=== PATIENT | female | born 1955 | race Caucasian/White ===

== ENCOUNTER 2018-07-28 11:37 | Emergency (ER) | payer BC ==
[2018-07-28 12:13] LABS: #Basophils 0.1 thou/uL (0.0-0.2); #Eosinphils 0.1 thou/uL (0.0-0.7); #Lymphocytes 1.7 thou/uL (1.20-3.40); #Monocytes 0.4 thou/uL (0.11-0.59); %Basophils 1.5 % (0.0-1.0); %Eosinophils 0.8 % (0.0-10.0); %Lymphocytes 27.8 % (21.0-51.0); %Monocytes 5.8 % (0.0-10.0); %Neutrophils 64.1 % (42.0-75.0); Hemoglobin 12.6 g/dL (12.0-16.0); Mean Corpuscular Hemoglobin 29.4 pg (27.0-31.0); Mean Corpuscular Volume 88.9 fL (78.0-98.0); Mean Platelet Volume 8.4 fL (7.4-10.4); Platelet Count 255 thou/uL (130-400); RBC Distribution Width 12.7 % (11.5-14.5); Red Blood Cell (RBC) Count 4.28 mill/uL (4.20-5.40); White Blood Cell (WBC) Count 6.2 thou/uL (4.8-10.8)
--- NOTE | 2018-07-28 12:25 | RAD ---
SINGLE VIEW CHEST: Date: 07/28/18 COMPARISON: 08/03/13. HISTORY: Chest pain and shortness of breath. FINDINGS: Single view of the chest shows a normal sized cardiomediastinal silhouette with atherosclerotic calci fications in the aorta. There is no evidence of consolidation, mass, or pleural effusion. Degenerativ e changes are seen in the spine. IMPRESSION: No evidence of acute cardiopulmonary disease. POS: [facility]
[2018-07-28 12:41] LABS: ALT (SGPT) 16 U/L (8-55); AST (SGOT) 18 U/L (5-34); Albumin 4.1 g/dL (3.4-4.8); Alkaline Phosphatase 88 U/L (40-150); Anion Gap 11 mmol/L (10-20); BUN (Urea Nitrogen) 19 mg/dL (9.8-20.1); Bilirubin, Total 0.3 mg/dL (0.2-1.2); Calc. Creatinine Clearance 0 mL/min (70-130); Calcium 9.8 mg/dL (7.8-10.44); Carbon Dioxide 28 mmol/L (23-31); Chloride 104 mmol/L (98-107); Estimated GFR-MDRD 73; Globulin 3.3 g/dL (2.4-3.5); Glucose 106 mg/dL (80-115); Potassium 3.8 mmol/L (3.5-5.1); Protein, Total 7.4 g/dL (6.0-8.3); Sodium 139 mmol/L (136-145)
[2018-07-28 12:45] LABS: CKMB 2.4 ng/mL (0-6.6); Troponin I Less than 0.010 ng/mL (< 0.028)
--- NOTE | 2018-07-28 13:45 | ULT ---
RIGHT UPPER EXTREMITY ARTERIAL VASCULAR DUPLEX INCLUDING COLOR AND SPECTRAL DOPPLER IMAGING: Date: 07/28/18 HISTORY: 63-year-old female with history of right upper extremity tingling and numbness. Smoking history. FINDINGS: There is some fairly prominent plaque in the proximal right CCA with some turbulent flow, but no sign ificant abnormal increased velocity. Minimal increased velocity up to 155 cm/sec in the origin of the right subclavian artery. Otherwise including the right subclavian, right axillary, right brachial, a nd right radial and ulnar arteries, there is monophasic flow, but no evidence for significant abnorma l high velocities. Exam was somewhat difficult because of imaging of the vessels. IMPRESSION: Evidence for atherosclerotic vascular disease involving the proximal common carotid artery with plaqu e, but no significant abnormal increased velocity. Minimal increased velocity in the right subclavian artery. Monophasic flow throughout the remainder of the right upper extremity, but no evidence for s ignificant abnormal high velocities or occlusion. POS: [facility]
--- NOTE | 2018-07-30 19:04 | EKG ---
Test Reason : Blood Pressure : / mmHG Vent. Rate : 073 BPM Atrial Rate : 073 BPM P-R Int : 146 ms QRS Dur : 088 ms QT Int : 386 ms P-R-T Axes : 054 046 029 degrees QTc Int : 425 ms Normal sinus rhythm Possible Left atrial enlargement Left ventricular hypertrophy Nonspecific ST abnormality Abnormal ECG Artifact Confirmed by GAGANDEEP HUMPHREY, AFUA Randhawa ([id number]), offline editor HALINA BENITEZ ([id number]) on 07/30/2018 7:03:36 PM Referred By: Confirmed By:AFUA DONIS MD
== END 2018-07-28 14:15 | disposition home or self-care (01) ==
LOC: ERS 11:37
DX: M79.601 Pain in right arm (principal); Z71.6 Tobacco abuse counseling; F17.210 Nicotine dependence, cigarettes, uncomplicated; E78.5 Hyperlipidemia, unspecified; I10 Essential (primary) hypertension; Z79.899 Other long term (current) drug therapy
CPT/HCPCS: 71045; 82553; 83880; 84484; 93005; 93923; 99406

== ENCOUNTER 2019-10-06 08:40 | Outpatient (CLI) | payer BC ==
--- NOTE | 2019-10-06 11:19 | BD ---
DEXA BONE DENSITY STUDY: Date: 10/06/2019 HISTORY: Postmenopausal. FINDINGS: Lumbar Spine: BMD (g/cm2) L1 0.858 T-Score: -1.2 L2 0.856 T-Score: -1.6 L3 0.966 T-Score: -1.1 L4 1.000 T-Score: -0.6 Total 0.925 T-Score: -1.1 Left Femoral Neck: 0.578 T-Score: -2.4 Total Femur: 0.800 T-Score: -1.2 IMPRESSION: 1. Osteopenia of the left femoral neck. Values border on the osteoporosis range. 2. Osteopenia of the lumbar spine. 10 year fracture risk for major osteoporotic fracture is 21% and for hip fracture is 6.5%. These frac ture probabilities are calculated for an untreated patient. POS: [facility]
--- NOTE | 2019-10-06 12:38 | RAD ---
PA AND LATERAL CHEST: Date: 10/06/2019 HISTORY: Hypertension. FINDINGS: Heart size within normal limits. There are atherosclerotic changes of the aorta. Chronic lung changes are seen. IMPRESSION: Mild chronic lung change. POS: [facility]
--- NOTE | 2019-10-12 12:41 | MMO ---
Bilateral MAMMO Bilat Screen [facility]. CLINICAL HISTORY: Patient is 64 years old and is seen for screening. The patient has no family history of breast cancer. The patient has no personal history of cancer. The patient has a history of left Lumpectomy in 2002 - benign and left Lumpectomy in 2001 - benign. VIEWS: The views performed were: bilateral craniocaudal with tomosynthesis and bilateral mediolateral oblique with tomosynthesis. FILMS COMPARED: The present examination has been compared to a prior imaging study performed at [facility] on 07/17/2015. This study has been interpreted with the assistance of computer-aided detection. MAMMOGRAM FINDINGS: There are scattered fibroglandular densities. There are no suspicious masses, suspicious calcifications, or new areas of architectural distortion. IMPRESSION: THERE IS NO MAMMOGRAPHIC EVIDENCE OF MALIGNANCY. A ROUTINE FOLLOW-UP MAMMOGRAM IN 1 YEAR IS RECOMMENDED. THE RESULTS OF THIS EXAM WERE SENT TO THE PATIENT. ACR BI-RADS Category 1 - Negative MAMMOGRAPHY NOTE: 1. A negative mammogram report should not delay a biopsy if a dominant of clinically suspicious mass is present. 2. Approximately 10% to 15% of breast cancers are not detected by mammography. 3. Adenosis and dense breasts may obscure an underlying neoplasm. Reported by: ANTONIA MAZARIEGOS MD Electonically Signed: [id number]
== END 2019-10-06 08:41 | disposition home or self-care (01) ==
LOC: BICMAMMO 08:40
PROVIDERS: ATTEND Nurse Practitioner Family
DX: Z12.31 Encounter for screening mammogram for malignant neoplasm of breast (principal); Z13.820 Encounter for screening for osteoporosis; E55.9 Vitamin D deficiency, unspecified; I10 Essential (primary) hypertension; R09.89 Other specified symptoms and signs involving the circulatory and respiratory systems; M51.36 Other intervertebral disc degeneration, lumbar region; M54.5 Low back pain; M85.89 Other specified disorders of bone density and structure, multiple sites; Z72.0 Tobacco use; Z91.89 Other specified personal risk factors, not elsewhere classified
CPT/HCPCS: 71046; 77063; 77067; 77080

== ENCOUNTER 2019-10-12 11:49 | Outpatient (CLI) | payer BC, MEDICARE, MEDICAID ==
--- NOTE | 2019-10-12 13:37 | MRI ---
MRI thoracic spine noncontrast: DATE: 10/12/2019 HISTORY: 64-year-old female with mid back pain and urinary retention COMPARISON: None FINDINGS: Vertebral body heights are maintained. There is sclerosis, probably representing Modic type III arriaza es, at the anterior portions of the bodies of T6, T7, and T8. There is also mild rim of bone marrow edema around these sclerosis at T6-7, representing mild Modic type I changes. There is narrowing of t he anterior aspects of the disc spaces at T5-6, T6-7, T7-8, and T8-9. No other significant bone marrow signal abnormality. Mild lateral curvature. Vertebral body heights a re maintained. 1 x 0.4 cm T2 hyperintense and T1 hypointense lesion in a subcapsular location at far posterior aspec t of right lobe of liver, nonspecific but probably a tiny hepatic cyst. Thoracic spinal cord is normal in size, with no definitive evidence of intramedullary edema or myelom alacia. There is no syringohydromyelia. No extrinsic cord impingement at any level. At T11-T12 there is a shallow, broad-based disc-osteophyte complex indenting the ventral aspect of th e thecal sac, but not contacting the spinal cord, and not causing high-grade central spinal canal stenosis. There is endplate irregularity and moderate disc space narrowing at T 11-12. There is no high-grade central spinal canal stenosis at any level. No severe neural foraminal stenosi s at any level. Perivertebral space soft tissues are unremarkable. IMPRESSION: 1. Discogenic degenerative changes at several levels in the midthoracic spine associated with mild la teral curvature, and at T11-12. 2. Otherwise negative.
--- NOTE | 2019-10-12 14:13 | MRI ---
MRI of thelumbar spine: 10/12/2019 COMPARISON:None available HISTORY:Chronic back pain with urinary retention, left-sided back pain TECHNIQUE: Multiplanar multisequence MR imaging of thelumbar spine without contrast Findings:The sagittal STIR imaging demonstrates no focal area of osseous marrow edema. There is mid l umbar spine dextroscoliosis, not optimally assessed on this exam. On the basis of 5 lumbar type vertebral bodies, the conus medullaris terminates at the L1-2 level. T12-L1: Unremarkable L1-2: Disc space narrowing and disc desiccation. Mild bilateral facet hypertrophy. No significant soco tral canal or neural foraminal stenosis. L2-3: Mild bilateral facet hypertrophy. Mild disc space narrowing and disc desiccation. No significan t central canal or neural foraminal stenosis. L3-4: There is disc desiccation and mild bilateral facet hypertrophy with no significant central iesha l or neural foraminal stenosis. L4-5: Mild bilateral facet hypertrophy. Mild disc desiccation. Mild bilateral facet hypertrophy. Mild central canal stenosis and bilateral neural foraminal stenosis. L5-S1: Bilateral facet hypertrophy, right greater than left. Mild central canal stenosis with mild/mo derate right lateral recess stenosis. Moderate/severe right neural foraminal stenosis. Mild left neural foraminal stenosis. Image retroperitoneal structures demonstrate no acute findings. IMPRESSION:Degenerative disc disease as detailed above, most prominent at the lumbosacral junction, r ight greater than left.
--- NOTE | 2019-10-12 14:28 | ULT ---
EXAM: Arterial Doppler evaluation right upper extremity with spectral analysis and color flow PROVIDED CLINICAL HISTORY: Undetectable right arm blood pressure. Weak pulse right upper extremity. COMPARISON: 07/28/2018 FINDINGS: Grayscale, color-flow, Doppler evaluation, spectral analysis of the right upper extremity arterial ve ssels is performed with 2-D imaging. Calcified atherosclerotic plaque is seen within the visualized right common carotid artery. No obvious significant calcified atherosclerotic plaque is visualized on sonographic evaluation of the right upper extremity arterial vessels. Monophasic waveforms with spectral broadening throughout the right upper extremity arterial vessels. There is evidence of retrograde flow in the right vertebral artery. There is a diminished peak systolic velocity between the proximal and distal subclavian artery. Peak systolic velocity in the pr oximal right subclavian artery is 61 cm/s with velocity in the distal subclavian artery of 38.2 cm/s. However, given retrograde flow in the right vertebral artery suggests subclavian steal phenomen on. The right upper extremity vertebral artery was not imaged on prior study in 2018. 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 Monophasic wave forms are also seen throughout the right upper extremity arterial vessels, and there is a significant decrease in peak systolic velocity between the proximal right upper extremity subclavian and distal subclavian artery suggesting possible significant stenosis at this level. CT angiogram right upper extremity to include the aortic arch is recommended for further evaluation.
== END 2019-10-12 11:50 | disposition home or self-care (01) ==
LOC: MRI 11:49
PROVIDERS: ATTEND Nurse Practitioner Family
DX: M47.816 Spondylosis without myelopathy or radiculopathy, lumbar region (principal); M54.5 Low back pain; R09.89 Other specified symptoms and signs involving the circulatory and respiratory systems; I10 Essential (primary) hypertension; Z72.0 Tobacco use; M51.37 Other intervertebral disc degeneration, lumbosacral region; M48.07 Spinal stenosis, lumbosacral region; M51.34 Other intervertebral disc degeneration, thoracic region
CPT/HCPCS: 72146; 72148; 93923

== ENCOUNTER 2020-06-20 09:00 | Outpatient (CLI) | payer MEDICARE, MEDICAID ==
--- NOTE | 2020-06-20 10:32 | MRI ---
EXAM: MRI right shoulder PROVIDED CLINICAL HISTORY: Pain COMPARISON: None FINDINGS: Evaluation is limited by patient motion. There is high-grade partial-thickness bursal surface tearing involving the distal conjoined tendon ab out 1 cm from the footplate. The components of the rotator cuff appear otherwise intact. The long head biceps tendon appears intact and normally located. The glenoid labrum and glenohumeral articular cartilage are suboptimally evaluated in the absence of joint distention. There is abnormal signal in the region of the superior labrum suspicious for SLAP tear. No high-grade chondral defect is apparent. The amount of fluid within the glenohumeral joint appears physiologic. There is slightly greater than physiologic subacromial subdeltoid bursal fluid. Acromioclavicular joint osteoarthrosis is noted with mild mass effect upon the subjacent supraspinatus. Rotator cuff muscular volume appears preserve d. No focal concerning regional marrow or muscular signal abnormality is evident. IMPRESSION: 1. High-grade partial-thickness bursal surface tear involving the distal conjoined tendon. Greater th an physiologic subacromial subdeltoid bursal fluid may reflect an occult full-thickness component to this tear versus bursitis. 2. Findings compatible with SLAP tear. 3. Acromioclavicular joint osteoarthrosis.
== END 2020-06-20 09:01 | disposition home or self-care (01) ==
LOC: BICMRI 09:00
PROVIDERS: ATTEND Orthopaedic Surgery
DX: M25.511 Pain in right shoulder (principal); S46.911A Strain of unspecified muscle, fascia and tendon at shoulder and upper arm level, right arm, initial encounter; M19.011 Primary osteoarthritis, right shoulder

== ENCOUNTER 2020-12-16 16:47 | Outpatient (CLI) | payer MEDICARE, MEDICAID ==
[2020-12-16 18:32] LABS: #Basophils 0.1 10x3/uL (0.0-0.2); #Eosinphils 0.2 10x3/uL (0.0-0.5); #Monocytes 0.6 10x3/uL (0.0-1.1); #Neutrophils 4.9 10x3/uL (1.5-8.4); %Basophils 0.7 % (0.0-2.0); %Eosinophils 1.9 % (0.0-6.0); %Lymphocytes 30.5 % (18.0-47.0); %Monocytes 7.4 % (0.0-10.0); %Neutrophils 59.3 % (40.0-75.0); Mean Corpuscular HGB CONC 32.6 g/dL (32.0-36.0); Mean Corpuscular Hemoglobin 29.3 pg (27.0-33.0); Mean Corpuscular Volume 89.8 fl (81.6-98.3); Platelet Count 240 10x3/uL (150-450); RBC Distribution Width 14.8 % (11.5-14.5); White Blood Cell (WBC) Count 8.2 10x3/uL (3.5-10.5)
[2020-12-16 18:43] LABS: INR-International Normal Ratio 0.9; Prothrombin Time 9.8 sec (9.5-12.1)
[2020-12-16 19:10] LABS: Anion Gap 13 mmol/L (10-20); BUN (Urea Nitrogen) 16 mg/dL (9.8-20.1); Calc. Creatinine Clearance 0 mL/min (70-130); Calcium 9.6 mg/dL (7.8-10.44); Carbon Dioxide 31 mmol/L (23-31); Chloride 101 mmol/L (98-107); Glucose 88 mg/dL (80-115); Potassium 4.2 mmol/L (3.5-5.1); Sodium 141 mmol/L (136-145)
[2020-12-17 06:59] LABS: SARS-CoV-2 PCR by NAA Not Detected (NotDetected)
== END 2020-12-16 16:48 | disposition home or self-care (01) ==
LOC: LABBT 16:47
PROVIDERS: ATTEND Orthopaedic Surgery
DX: Z01.818 Encounter for other preprocedural examination (principal); M75.111 Incomplete rotator cuff tear or rupture of right shoulder, not specified as traumatic; M75.21 Bicipital tendinitis, right shoulder; Z20.822 Contact with and (suspected) exposure to COVID-19
CPT/HCPCS: 80048; 85025; 85610; U0003; U0005; 87635; 93005; 93010

== ENCOUNTER 2020-12-19 06:33 | Day surgery (SDC) | payer MEDICARE, MEDICAID ==
[2020-12-17 15:02] VITALS: BMI 31.1
[2020-12-19] MEDS ORDERED: Midazolam HCl 2 mg/2 ml Vial ONE (08:24)
[2020-12-19] MEDS ORDERED: Fentanyl 100 MCG/2 ML VIAL ONE ×2 (08:24→08:37)
[2020-12-19] MEDS ORDERED: Bupivacaine PF 0.5% 30 ML VIAL ONE ×2 (08:25→09:10)
[2020-12-19] MEDS ORDERED: Sodium Chloride 0.9% 10 ML ONE (08:26)
[2020-12-19] MEDS ORDERED: ePHEDrine Sulfate 50 MG/10 ML VIAL ONE (09:10)
[2020-12-19] MEDS ORDERED: Ondansetron PF 4 MG/2 ML Vial ONE (09:10)
[2020-12-19] MEDS ORDERED: Rocuronium Bromide 10 MG/ML (10ML VIAL) ONE (09:10)
[2020-12-19] MEDS ORDERED: Lidocaine 1% PF 5 ML VIAL ONE (09:10)
[2020-12-19] MEDS ORDERED: PROPOFOL 200 MG/20 ML VIAL ONE (09:10)
[2020-12-19] MEDS ORDERED: Dexamethasone 20 MG/5 ML VIAL ONE (09:10)
[2020-12-19] MEDS ORDERED: Glycopyrrolate 0.2 MG/ML 5 ML SYRINGE ONE (09:10)
[2020-12-19] MEDS ORDERED: Lidocaine 1% w/Epinephrine 1:100K 20 ML VIAL ONE (09:24)
[2020-12-19] MEDS ORDERED: Zolpidem Tartrate 5 MG TAB PO PRN (10:00)
[2020-12-19] MEDS ORDERED: Ropivacaine 0.2% 550 ML 550 ML NERVE BLCK SCH (10:00)
[2020-12-19] MEDS ORDERED: Promethazine HCl 25 MG/ML VIAL IM PRN (10:00)
[2020-12-19] MEDS ORDERED: Ondansetron PF 4 MG/2 ML Vial IVP PRN (10:00)
[2020-12-19] MEDS ORDERED: Phenylephrine 10 MG/ML VIAL ONE (10:12)
== END 2020-12-19 13:00 | disposition home or self-care (01) ==
LOC: SDC 06:33
PROVIDERS: ATTEND Orthopaedic Surgery
PROC: 0LQ14ZZ Repair Right Shoulder Tendon, Percutaneous Endoscopic Approach (ICD-10-PCS; principal; 2020-12-19)
PROC: 0LS30ZZ Reposition Right Upper Arm Tendon, Open Approach (ICD-10-PCS; 2020-12-19)
PROC: 3E0T3BZ Introduction of Anesthetic Agent into Peripheral Nerves and Plexi, Percutaneous Approach (ICD-10-PCS; 2020-12-19)
DX: M75.111 Incomplete rotator cuff tear or rupture of right shoulder, not specified as traumatic (principal); M75.21 Bicipital tendinitis, right shoulder; S43.431A Superior glenoid labrum lesion of right shoulder, initial encounter; G89.18 Other acute postprocedural pain; I10 Essential (primary) hypertension; E11.9 Type 2 diabetes mellitus without complications; E78.5 Hyperlipidemia, unspecified; J44.9 Chronic obstructive pulmonary disease, unspecified; K21.9 Gastro-esophageal reflux disease without esophagitis; Z79.82 Long term (current) use of aspirin; Z79.84 Long term (current) use of oral hypoglycemic drugs; Z79.899 Other long term (current) drug therapy
CPT/HCPCS: 23430; 29827; 64416; A4306; C1713 ×3; J0690; J1100; J2250; J2370; J2405; J2704; J2795; J3010; S0020

== ENCOUNTER 2022-01-28 10:07 | Outpatient (CLI) | payer MEDICARE, MEDICAID | END 2022-01-28 10:08 | disposition home or self-care (01) | LOC: MRI 10:07 | PROVIDERS: ATTEND Orthopaedic Surgery | DX: M25.562 Pain in left knee (principal); S83.232D Complex tear of medial meniscus, current injury, left knee, subsequent encounter; M94.262 Chondromalacia, left knee ==

== ENCOUNTER 2022-03-26 12:16 | Outpatient (CLI) | payer OTHER, MEDICAID ==
[2022-03-26 13:21] LABS: #Basophils 0.1 10x3/uL (0.0-0.2); #Eosinphils 0.2 10x3/uL (0.0-0.5); #Monocytes 0.6 10x3/uL (0.0-1.1); #Neutrophils 3.8 10x3/uL (1.5-8.4); %Basophils 0.7 % (0.0-2.0); %Eosinophils 2.3 % (0.0-6.0); %Lymphocytes 34.3 % (18.0-47.0); %Monocytes 8.4 % (0.0-10.0); %Neutrophils 54.2 % (40.0-75.0); Hemoglobin 12.2 g/dL (12.0-15.5); Mean Corpuscular HGB CONC 32.5 g/dL (32.0-36.0); Mean Corpuscular Hemoglobin 28.2 pg (27.0-33.0); Mean Corpuscular Volume 86.6 fl (81.6-98.3); Mean Platelet Volume 10.2 fl (7.4-10.4); Platelet Count 244 10x3/uL (150-450); RBC Distribution Width 14.9 % (11.5-14.5); Red Blood Cell (RBC) Count 4.33 10x6/uL (3.90-5.03); White Blood Cell (WBC) Count 6.9 10x3/uL (3.5-10.5)
[2022-03-26 13:42] LABS: Anion Gap 15 mmol/L (10-20); BUN (Urea Nitrogen) 16 mg/dL (9.8-20.1); Calc. Creatinine Clearance 0 mL/min (70-130); Calcium 9.9 mg/dL (7.8-10.44); Carbon Dioxide 28 mmol/L (23-31); Chloride 103 mmol/L (98-107); Estimated GFR 84; Glucose 103 mg/dL (80-115); Potassium 4.8 mmol/L (3.5-5.1); Sodium 141 mmol/L (136-145)
[2022-03-26 13:47] LABS: INR-International Normal Ratio 0.9; Prothrombin Time 9.8 sec (9.5-12.1)
== END 2022-03-26 12:17 | disposition home or self-care (01) ==
LOC: LABBT 12:16
PROVIDERS: ATTEND Orthopaedic Surgery
DX: Z01.812 Encounter for preprocedural laboratory examination (principal); M17.12 Unilateral primary osteoarthritis, left knee; Z20.822 Contact with and (suspected) exposure to COVID-19
CPT/HCPCS: 80048; 85025; 85610; 87081; 87811

== ENCOUNTER 2022-03-31 06:30 | Observation (INO) | payer OTHER, MEDICAID ==
[2022-03-31] MEDS ORDERED: Sodium Chloride 0.9% 100 ML ONE ×2 (07:00→09:21)
[2022-03-31] MEDS ORDERED: Vancomycin 1 GM/200 ML BAG ONE (07:00)
[2022-03-31] MEDS ORDERED: Tranexamic Acid 1,000 MG/10 ML VIAL ONE (07:00)
[2022-03-31] MEDS ORDERED: Midazolam HCl 2 mg/2 ml Vial ONE (07:58)
[2022-03-31] MEDS ORDERED: Fentanyl 100 MCG/2 ML VIAL ONE ×2 (07:58→11:34)
[2022-03-31] MEDS ORDERED: HYDROmorphone 2 MG/ML VIAL ONE (08:23)
[2022-03-31] MEDS ORDERED: Propofol 500 MG/50 ML VIAL ONE (08:23)
[2022-03-31] MEDS ORDERED: Fentanyl 100 MCG/2 ML VIAL IV PRN (09:11)
[2022-03-31] MEDS ORDERED: traMADol HCl 50 MG TAB PO PRN (09:15)
[2022-03-31] MEDS ORDERED: Ondansetron PF 4 MG/2 ML Vial IVP PRN (09:15)
[2022-03-31] MEDS ORDERED: Ropivacaine 0.2% 550 ML 550 ML NERVE BLCK SCH (09:15)
[2022-03-31] MEDS ORDERED: Promethazine HCl 25 MG/ML VIAL IM PRN (09:15)
[2022-03-31] MEDS ORDERED: Zolpidem Tartrate 5 MG TAB PO PRN (09:15)
[2022-03-31] MEDS ORDERED: CEFAZOLIN 2 GM VIAL ONE (09:21)
[2022-03-31] MEDS ORDERED: Metoprolol Tartrate 5 MG/5 ML VIAL ONE (09:30)
[2022-03-31] MEDS ORDERED: Ketorolac Tromethamine 30 MG/ML VIAL ONE (09:30)
[2022-03-31] MEDS ORDERED: Glycopyrrolate 0.2 MG/ML 5 ML SYRINGE ONE (09:30)
[2022-03-31] MEDS ORDERED: Lidocaine 1% PF 5 ML VIAL ONE (09:30)
[2022-03-31] MEDS ORDERED: ePHEDrine 50 MG/ML VIAL ONE (09:30)
[2022-03-31] MEDS ORDERED: Phenylephrine 10 MG/ML VIAL ONE (09:30)
[2022-03-31] MEDS ORDERED: Ondansetron PF 4 MG/2 ML Vial ONE (09:30)
[2022-03-31] MEDS ORDERED: Bupivacaine HCl 0.5%/Epinephrine 1:200,000/PF 30 ml Vial ONE ×2 (09:30)
[2022-03-31] MEDS ORDERED: PROPOFOL 200 MG/20 ML VIAL ONE (09:30)
[2022-03-31] MEDS ORDERED: Dexamethasone 20 MG/5 ML VIAL ONE (09:30)
[2022-03-31] MEDS ORDERED: Bupivacaine/Epinephrine 0.25% 30 ML VIAL ONE (10:13)
[2022-03-31] MEDS ORDERED: Acetaminophen 325 MG TAB PO PRN (11:14)
[2022-03-31] MEDS ORDERED: diphenhydrAMINE 25 MG CAP PO PRN (11:14)
[2022-03-31] MEDS ORDERED: Vancomycin HCl 1.5 GM in Sodium Chloride 0.9% 250 ML 300 ML IVPB SCH ×2 (13:00→19:00)
[2022-03-31 14:35] VITALS: BMI 32.2
[2022-03-31] MEDS: Ketorolac Tromethamine 30 MG/ML VIAL IVP SCH ×3 (14:41→22:51)
[2022-03-31] MEDS: Sodium Chloride 0.9% 1,000 ML IV SCH ×2 (14:41→22:15)
[2022-03-31] MEDS: HYDROcodone/Acetaminophen 10/325 mg Tablet PO PRN (15:00)
[2022-03-31] MEDS ORDERED: HumaLOG 300 UNITS/3 ML VIAL SC PRN ×2 (15:08)
[2022-03-31] MEDS ORDERED: Dextrose 50% Abboject 50 ML SYRINGE SLOW IVP PRN (15:08)
[2022-03-31] MEDS ORDERED: Dextrose 5% in Water 1,000 ML IV PRN (15:08)
[2022-03-31] MEDS ORDERED: Famotidine 20 MG TAB PO PRN (15:14)
[2022-03-31] MEDS ORDERED: Albuterol Sulfate 2.5 mg/0.5 ml Neb NEB PRN (15:49)
[2022-03-31] MEDS: metFORMIN 500 MG TAB PO SCH (18:32)
[2022-03-31] MEDS: CEFAZOLIN 2 GM in Sodium Chloride 0.9% 100 ML IVPB SCH (18:43)
[2022-03-31] MEDS ORDERED: Vancomycin 1.5 GRAM/300 ML BAG 1.5 GM in Premix Bag 1 BAG IVPB SCH (20:00)
[2022-03-31] MEDS: Lisinopril 20 MG TAB PO SCH (20:54)
[2022-03-31] MEDS: Atorvastatin Calcium 40 MG TAB PO SCH (20:54)
[2022-03-31] MEDS: Aspirin 81 mg Enteric Coated Tablet PO SCH (20:56)
[2022-03-31] MEDS: Ferrous Gluconate 324 MG TAB PO SCH (20:56)
[2022-03-31] MEDS ORDERED: Losartan 25 MG TAB PO SCH (21:00)
[2022-03-31] MEDS: Senokot S 8.6-50 MG TAB PO SCH (21:00)
[2022-03-31] MEDS ORDERED: Hydrochlorothiazide 25 MG TAB PO SCH (21:00)
[2022-03-31] MEDS ORDERED: rOPINIRole HCl 0.5 MG TAB PO PRN ×2 (22:53→23:11)
[2022-04-01] MEDS: HYDROcodone/Acetaminophen 10/325 mg Tablet PO PRN ×2 (00:37→16:38)
[2022-04-01 06:58] LABS: Hemoglobin 9.7 g/dL (12.0-16.0); Mean Corpuscular HGB CONC 33.5 g/dL (32.0-36.0); Mean Corpuscular Volume 89.5 fL (78.0-98.0); Mean Platelet Volume 9.1 fL (7.4-10.4); Platelet Count 175 thou/uL (130-400); RBC Distribution Width 13.4 % (11.5-14.5); Red Blood Cell (RBC) Count 3.23 mill/uL (4.20-5.40); White Blood Cell (WBC) Count 9.8 thou/uL (4.8-10.8)
[2022-04-01] MEDS: Sodium Chloride 0.9% 1,000 ML IV SCH ×2 (07:14→17:06)
[2022-04-01] MEDS: CEFAZOLIN 2 GM in Sodium Chloride 0.9% 100 ML IVPB SCH (07:54)
[2022-04-01] MEDS: Ketorolac Tromethamine 30 MG/ML VIAL IVP SCH ×3 (07:54→17:06)
[2022-04-01] MEDS: metFORMIN 500 MG TAB PO SCH ×2 (09:26→16:39)
[2022-04-01] MEDS: Ferrous Gluconate 324 MG TAB PO SCH ×2 (09:26→21:26)
[2022-04-01] MEDS: Aspirin 81 mg Enteric Coated Tablet PO SCH ×2 (09:26→21:26)
[2022-04-01] MEDS: Multivitamin W/ Minerals 1 TAB PO SCH (09:27)
[2022-04-01] MEDS: Senokot S 8.6-50 MG TAB PO SCH ×2 (09:27→21:27)
[2022-04-01] MEDS: traMADol HCl 50 MG TAB PO PRN (12:11)
[2022-04-01] MEDS ORDERED: rOPINIRole HCl 0.25 MG TAB PO SCH (21:00)
[2022-04-01] MEDS: Lisinopril 20 MG TAB PO SCH (21:26)
[2022-04-01] MEDS: Atorvastatin Calcium 40 MG TAB PO SCH (21:27)
[2022-04-02] MEDS: Ketorolac Tromethamine 30 MG/ML VIAL IVP SCH ×2 (02:58→06:16)
[2022-04-02] MEDS: Sodium Chloride 0.9% 1,000 ML IV SCH (02:59)
[2022-04-02] MEDS: traMADol HCl 50 MG TAB PO PRN (03:32)
[2022-04-02 05:20] LABS: Hemoglobin 9.5 g/dL (12.0-16.0); Mean Corpuscular HGB CONC 32.7 g/dL (32.0-36.0); Mean Corpuscular Hemoglobin 29.4 pg (27.0-31.0); Mean Corpuscular Volume 89.8 fL (78.0-98.0); Mean Platelet Volume 8.9 fL (7.4-10.4); Platelet Count 179 thou/uL (130-400); RBC Distribution Width 13.4 % (11.5-14.5); Red Blood Cell (RBC) Count 3.23 mill/uL (4.20-5.40); White Blood Cell (WBC) Count 8.9 thou/uL (4.8-10.8)
[2022-04-02] MEDS: HYDROcodone/Acetaminophen 10/325 mg Tablet PO PRN (07:55)
[2022-04-02] MEDS: Ferrous Gluconate 324 MG TAB PO SCH (07:56)
[2022-04-02] MEDS: metFORMIN 500 MG TAB PO SCH (07:56)
[2022-04-02] MEDS: Multivitamin W/ Minerals 1 TAB PO SCH (07:56)
[2022-04-02] MEDS: Aspirin 81 mg Enteric Coated Tablet PO SCH (07:56)
[2022-04-02] MEDS: Senokot S 8.6-50 MG TAB PO SCH (07:56)
[2022-04-02 08:05] VITALS: BP 147/74; TEMP 99.1
== END 2022-04-02 09:35 | disposition home or self-care (01) ==
LOC: SDC 06:30 → EDSTATUS 13:00 → SURG A 14:00 → SDC 14:37 → SURG A 14:37
PROVIDERS: ADMIT Orthopaedic Surgery; ATTEND Orthopaedic Surgery
PROC: 0SRD0J9 Replacement of Left Knee Joint with Synthetic Substitute, Cemented, Open Approach (ICD-10-PCS; principal; 2022-03-31)
PROC: 3E0T3BZ Introduction of Anesthetic Agent into Peripheral Nerves and Plexi, Percutaneous Approach (ICD-10-PCS; 2022-03-31)
DX: M17.12 Unilateral primary osteoarthritis, left knee (principal); I10 Essential (primary) hypertension; E11.9 Type 2 diabetes mellitus without complications; J44.9 Chronic obstructive pulmonary disease, unspecified; G25.81 Restless legs syndrome; E89.0 Postprocedural hypothyroidism; E78.5 Hyperlipidemia, unspecified; K21.9 Gastro-esophageal reflux disease without esophagitis; R33.9 Retention of urine, unspecified; Z87.891 Personal history of nicotine dependence; Z79.1 Long term (current) use of non-steroidal anti-inflammatories (NSAID); Z79.84 Long term (current) use of oral hypoglycemic drugs; Z79.899 Other long term (current) drug therapy
CPT/HCPCS: 27447; 64448; 73560; 82962 ×3; 85027 ×2; 97110 ×2; 97116 ×2; 97530; 97535; A4306; J3370; 36415; 36416; 96374; 96375; 96376; C1713; C1776; G0378; J0690; J1100; J1170; J1885; J2250; J2370; J2405; J2704; J2795; J3010; J3490; J7050

== ENCOUNTER 2022-11-26 10:01 | Outpatient (CLI) | payer OTHER, MEDICAID | END 2022-11-26 10:02 | disposition home or self-care (01) | LOC: BICMAMMO 10:01 | PROVIDERS: ATTEND Family Medicine | DX: Z12.31 Encounter for screening mammogram for malignant neoplasm of breast (principal); Z78.0 Asymptomatic menopausal state; Z98.890 Other specified postprocedural states; M85.80 Other specified disorders of bone density and structure, unspecified site | CPT/HCPCS: 77063; 77067; 77080 ==

== ENCOUNTER 2023-11-25 12:49 | Outpatient (CLI) | payer OTHER, MEDICAID ==
[~2023-11-25 12:49] MED LIST: Iopamidol 370 76% 100 ML VIAL ONE
== END 2023-11-25 12:50 | disposition home or self-care (01) ==
LOC: CT 12:49
PROVIDERS: ATTEND Student in an Organized Health Care Education/Training Program
DX: I77.9 Disorder of arteries and arterioles, unspecified (principal); I65.22 Occlusion and stenosis of left carotid artery; E04.2 Nontoxic multinodular goiter
CPT/HCPCS: 70498; 82565; Q9967